=== PATIENT | male | born 1960 | race Caucasian/White ===

== ENCOUNTER 2017-01-16 09:19 | Emergency (ER) | payer MEDICAID ==
[2017-01-16 09:45] VITALS: BP 138/93
[2017-01-16] MEDS ORDERED: Diphtheria,Pertussis(Acell),Tetanus Vaccine 0.5 ML SDV IM ONE (09:58)
[2017-01-16] MEDS ORDERED: Bacitracin Oint 1 GM U/D Packet TOP ONE (09:58)
--- NOTE | 2017-01-16 10:03 | EDM.PDOC ---
ED HPI Skin/Rash - General Chief Complaint: Laceration Stated Complaint: CUT THE FINGER ON RIGHT HAND Time Seen by Provider: 01/16/17 09:50 Source: Reports: Patient History Limitations: Reports: No limitations - History of Present Illness INITIAL COMMENTS - FREE TEXT/NARRATIVE: Just prior to arrival this gentleman was sharpening a knife and the knife slipped and he got a little laceration to the tip of the right index finger. His tetanus is not up to date. He washed the finger for several minutes under running water. - Related Data Allergies Allergy/AdvReac Type Severity Reaction Status Date / Time No Known Allergies Allergy Verified 01/16/17 09:35 Home Meds: Ambulatory Orders Medication Instructions Recorded Confirmed Cyclobenzaprine [Flexeril] 1 tab PO ASDIRECTED 10/16/16 10/16/16 Naproxen 2 tab PO ASDIRECTED 10/16/16 10/16/16 Lisdexamfetamine [Vyvanse] 01/16/17 01/16/17 Past Medical History Respiratory History: Reports: Bronchitis, recurrent Musculoskeletal History: Reports: Fracture Neurological History: Reports: Head trauma, MS, Other (see below) Other Neuro History: vega's palsy Psychiatric History: Reports: ADHD, Addiction, Anxiety, Bipolar, Depression, PTSD - Past Surgical History GI Surgical History: Reports: Appendectomy Neurological Surgical History: Reports: Other (see below) Other Neurological Surgeries/Procedures: tumor removed from spine Musculoskeletal Surgical History: Reports: Other (see below) Other Musculoskeletal Surgeries/Procedures:: leg surgery d/t fracture, jaw surgery Social & Family History - Tobacco Use Smoking Status *Q: Current Every Day Smoker Years of Tobacco use: 45 Packs/Tins Daily: 0.5 - Recreational Drug Use Recreational Drug Use: Yes Recreational Drug Type: Reports: Marijuana/Hashish Recreational Drug Use Frequency: Daily ED ROS GENERAL - Review of Systems Review Of Systems: ROS reveals no pertinent complaints other than HPI. ED EXAM, SKIN/RASH Exam: See Below Exam Limited By: No limitations General Appearance: alert, WD/WN, no apparent distress Extremities: other (There is a small flap-like laceration to the tip of the right index finger. Total length of the laceration is approximately 8 mm and it is shallow. Neurovascular appears to be intact. The wound is clean.) Course - Vital Signs Last Recorded V/S: Last Vital Signs Temp 36.7 C 01/16/17 09:43 Pulse 79 01/16/17 09:43 Resp 14 01/16/17 09:43 BP 138/93 H 01/16/17 09:43 Pulse Ox 94 L 01/16/17 09:43 - Orders/Labs/Meds Orders: Active Orders 24 hr Category Date Time Status Vaccines to be Administered [RC] PER UNIT ROUTINE Care 01/16/17 09:58 Ordered Meds: Medications Discontinued Medications Generic Name Dose Route Start Last Admin Trade Name Mehdi PRN Reason Stop Dose Admin Bacitracin 1 dose 01/16/17 09:58 Bacitracin Oint 1 Gm TOP 01/16/17 09:59 ONETIME ONE Diphtheria/Tetanus/Acell Pertussis 0.5 ml 01/16/17 09:58 Adacel IM 01/16/17 09:59 .ONCE ONE - Re-Assessments/Exams Free Text/Narrative Re-Assessment/Exam: 01/16/17 10:01 The wound was cleaned further by the nurse then antibiotic ointment was applied followed by a dressing. The patient received Adacel IM Departure - Departure Time of Disposition: 10:02 Disposition: Home, Self-Care 01 Condition: fair Clinical Impression: Finger laceration Forms: ED Department Discharge Additional Instructions: Wash the area with soap and water every day. Didn't apply a small dab of antibiotic ointment and keep covered with a Band-Aid. Keep this clean. Wear a glove if you're working somewhere where it might get dirty. This should heal quickly. - My Orders Last 24 Hours: My Active Orders 01/16/17 09:58 Vaccines to be Administered [RC] PER UNIT ROUTINE - Assessment/Plan Last 24 Hours: My Active Orders 01/16/17 09:58 Vaccines to be Administered [RC] PER UNIT ROUTINE
== END 2017-01-16 10:21 | disposition home or self-care (01) ==
LOC: JP.ED 09:19
DX: S61.210A Laceration without foreign body of right index finger without damage to nail, initial encounter (principal); F41.9 Anxiety disorder, unspecified; F32.9 Major depressive disorder, single episode, unspecified; F17.210 Nicotine dependence, cigarettes, uncomplicated; Z90.49 Acquired absence of other specified parts of digestive tract; Z23 Encounter for immunization; W26.0XXA Contact with knife, initial encounter
CPT/HCPCS: 90471; 90715; 99283-25

== ENCOUNTER 2017-05-16 13:50 | Emergency (ER) | payer MEDICAID ==
[2017-05-16] MEDS ORDERED: Ketorolac 60 MG/2 ML SDV IM ONE (15:27)
--- NOTE | 2017-05-16 15:30 | EDM.PDOC ---
ED HPI GENERAL MEDICAL PROBLEM - General Chief Complaint: General Stated Complaint: RIB PAIN FROM CHANGING A TRUCK TIRE Time Seen by Provider: 05/16/17 15:18 Source of Information: Reports: Patient, RN Notes Reviewed History Limitations: Reports: No Limitations - History of Present Illness INITIAL COMMENTS - FREE TEXT/NARRATIVE: 56-year-old gentleman presents emergency department today for complaint of chest pain, he was injured 3 days prior when a tiffany he was using to change a tire on a semi-tractor trailer truck became loose hit him across the anterior chest, he complains of difficulty breathing hard to take a deep breath chest pain, no nausea vomiting no other GI symptoms left rib around front and back, up right shoulder Pain Score (Numeric/FACES): 6 - Related Data Allergies Allergy/AdvReac Type Severity Reaction Status Date / Time No Known Allergies Allergy Verified 05/16/17 14:55 Home Meds: Home Meds Lisdexamfetamine [Vyvanse] 60 mg PO DAILY 01/16/17 [History] Past Medical History Respiratory History: Reports: Bronchitis, Recurrent Musculoskeletal History: Reports: Fracture Neurological History: Reports: Head Trauma, MS Other Neuro History: vega's palsy Psychiatric History: Reports: ADHD, Addiction, Anxiety, Bipolar, Depression, PTSD - Past Surgical History GI Surgical History: Reports: Appendectomy Neurological Surgical History: Reports: Other (See Below) Other Neurological Surgeries/Procedures: back surgery Musculoskeletal Surgical History: Reports: Other (See Below) Other Musculoskeletal Surgeries/Procedures:: various broken bones Social & Family History - Tobacco Use Smoking Status *Q: Current Every Day Smoker Years of Tobacco use: 30 Packs/Tins Daily: 1 - Recreational Drug Use Recreational Drug Use: No Recreational Drug Type: Reports: Marijuana/Hashish Recreational Drug Use Frequency: Daily ED ROS GENERAL - Review of Systems Review Of Systems: See Below Constitutional: Reports: No Symptoms HEENT: Reports: No Symptoms Respiratory: Reports: Shortness of Breath Cardiovascular: Reports: Chest Pain GI/Abdominal: Reports: No Symptoms : Reports: No Symptoms ED EXAM, GENERAL - Physical Exam Exam: See Below Exam Limited By: No Limitations General Appearance: Alert, WD/WN, No Apparent Distress Respiratory/Chest: No Respiratory Distress, Lungs Clear, Normal Breath Sounds, No Accessory Muscle Use, Other (Tenderness to palpation across the anterior chest) Cardiovascular: Regular Rate, Rhythm, No Murmur GI/Abdominal: Soft, Non-Tender Course - Vital Signs Last Recorded V/S: Last Vital Signs Temp 97 F 05/16/17 14:58 Pulse 60 05/16/17 17:27 Resp 16 05/16/17 17:27 BP 133/80 05/16/17 17:27 Pulse Ox 98 05/16/17 17:27 - Orders/Labs/Meds Orders: Active Orders 24 hr Category Date Time Status Peripheral IV Care [RC] . DIRECTED Care 05/16/17 16:28 Active Chest 2V [CR] Urgent Exams 05/16/17 15:27 Taken Chest w Cont [CT] Stat Exams 05/16/17 16:27 Taken Sodium Chloride 0.9% [Normal Saline] 1,000 ml Med 05/16/17 16:30 Active IV ASDIRECTED Sodium Chloride 0.9% [Saline Flush] Med 05/16/17 16:27 Active 10 ml FLUSH ASDIRECTED PRN Sodium Chloride 0.9% [Saline Flush] Med 05/16/17 17:00 Active 10 ml FLUSH ONETIME PRN Peripheral IV Insertion Adult [OM.PC] Urgent Oth 05/16/17 16:27 Ordered Medication Orders Sodium Chloride (Normal Saline) 1,000 mls @ 500 mls/hr IV ASDIRECTED WU Last Admin: 05/16/17 16:45 Dose: 500 mls/hr Sodium Chloride (Saline Flush) 10 ml FLUSH ASDIRECTED PRN PRN Reason: Keep Vein Open Last Admin: 05/16/17 16:45 Dose: 10 ml Sodium Chloride (Saline Flush) 10 ml FLUSH ONETIME PRN PRN Reason: PER RADIOLOGY PROTOCOL Last Admin: 05/16/17 17:07 Dose: 10 ml Meds: Medications Generic Name Dose Route Start Last Admin Trade Name Freq PRN Reason Stop Dose Admin Sodium Chloride 1,000 mls @ 500 mls/hr 05/16/17 16:30 05/16/17 16:45 Normal Saline IV 500 mls/hr ASDIRECTED WU Administration Sodium Chloride 10 ml 05/16/17 16:27 05/16/17 16:45 Saline Flush FLUSH 10 ml ASDIRECTED PRN Administration Keep Vein Open Sodium Chloride 10 ml 05/16/17 17:00 05/16/17 17:07 Saline Flush FLUSH 10 ml ONETIME PRN Administration PER RADIOLOGY PROTOCOL Discontinued Medications Generic Name Dose Route Start Last Admin Trade Name Mehdi PRN Reason Stop Dose Admin Sodium Chloride 75 mls @ 3 mls/sec 05/16/17 17:00 05/16/17 17:07 Normal Saline IV 05/16/17 17:01 3 mls/sec ONETIME ONE Administration Iopamidol 100 ml 05/16/17 17:00 05/16/17 17:07 Isovue-300 (61%) IV 05/16/17 17:01 100 ml . DIRECTED PRN Administration RADIOLOGY EXAM Ketorolac Tromethamine 60 mg 05/16/17 15:27 05/16/17 15:40 Toradol IM 05/16/17 15:28 60 mg ONETIME ONE Administration Departure - Departure Time of Disposition: 18:11 Disposition: Home, Self-Care 01 Condition: Poor Clinical Impression: Mediastinal mass - Discharge Information Forms: ED Department Discharge Additional Instructions: Please report to outpatient surgery for a bronchoscopy on Friday morning they will call you with the time - My Orders Last 24 Hours: My Active Orders 05/16/17 15:27 Chest 2V [CR] Urgent 05/16/17 16:27 Chest w Cont [CT] Stat Sodium Chloride 0.9% [Saline Flush] 10 ml FLUSH ASDIRECTED PRN Peripheral IV Insertion Adult [OM.PC] Urgent 05/16/17 16:28 Peripheral IV Care [RC] . DIRECTED 05/16/17 16:30 Sodium Chloride 0.9% [Normal Saline] 1,000 ml IV ASDIRECTED 05/16/17 17:00 Sodium Chloride 0.9% [Saline Flush] 10 ml FLUSH ONETIME PRN - Assessment/Plan Last 24 Hours: My Active Orders 05/16/17 15:27 Chest 2V [CR] Urgent 05/16/17 16:27 Chest w Cont [CT] Stat Sodium Chloride 0.9% [Saline Flush] 10 ml FLUSH ASDIRECTED PRN Peripheral IV Insertion Adult [OM.PC] Urgent 05/16/17 16:28 Peripheral IV Care [RC] . DIRECTED 05/16/17 16:30 Sodium Chloride 0.9% [Normal Saline] 1,000 ml IV ASDIRECTED 05/16/17 17:00 Sodium Chloride 0.9% [Saline Flush] 10 ml FLUSH ONETIME PRN Plan: Assessment Acuity = acute Site and laterality = mediastinal lung mass complicated patient with history of tobacco use and dependence Etiology = suspicious for primary lung cancer Manifestations = rib pain Location of injury = Home Lab values = CT scan describes a lobulated mass along the medial left apex that invades the adjacent mediastinum measures 5.2 x 4.6 cm Plan I did review CT scan results with him ice discussed the case with Dr. Louis from general surgery he agreed to see him on Friday plan for bronchoscopy with biopsies because he has no primary care physician he's also going to be set up with oncology for further evaluation Patient was in agreement with the plan all questions were answered, they were instructed to return to the emergency department or call for worsening symptoms. This note was dictated using [employer] voice recognition software please call with any questions.
[2017-05-16] MEDS ORDERED: Sodium Chloride 0.9% 10 ML Syringe FLUSH PRN ×2 (16:27→17:00)
[2017-05-16] MEDS ORDERED: Sodium Chloride 0.9% 1,000 ML IV SCH (16:30)
[2017-05-16] MEDS ORDERED: Sodium Chloride 0.9% 75 ML IV ONE (17:00)
[2017-05-16] MEDS ORDERED: Iopamidol 612 MG/ML 100 ML Bottle IV PRN (17:00)
[2017-05-16 17:27] VITALS: BP 133/80
--- NOTE | 2017-05-19 08:13 | CR ---
Chest 2V INDICATION: ant chest pain trauma COMPARISON: 10/16/2016 FINDINGS: Two views. Heart size normal. Infiltrate or mass in the left upper lobe medially is new . Lungs otherwise clear. No pleural effusion. Pleural-based density posteriorly on the lateral view. IMPRESSION: Left upper lobe infiltrate or mass. Pleural-based density posteriorly on the lateral vie w. CT chest to follow.
== END 2017-05-16 18:36 | disposition home or self-care (01) ==
LOC: JP.ED 13:50
DX: J98.59 Other diseases of mediastinum, not elsewhere classified (principal); F31.9 Bipolar disorder, unspecified; F17.210 Nicotine dependence, cigarettes, uncomplicated; Z79.899 Other long term (current) drug therapy; Z90.49 Acquired absence of other specified parts of digestive tract; Z98.890 Other specified postprocedural states; W22.8XXA Striking against or struck by other objects, initial encounter
CPT/HCPCS: 71020; 71260; 96361; 96374; 99284; 99285; J1885; J7030; J7040; J7050; Q9967

== ENCOUNTER → 2017-05-19 | Day surgery (SDC) | payer MEDICAID ==
[~2017-05-19] MED LIST: Dextrose 5%-Lactated Ringers 1,000 ML IV SCH; LORazepam 2 MG/ML MDV IVPUSH ONE; Lidocaine 2% Viscous Solution 15 ML Cup ONE; Lidocaine 4% Top Soln 4 ML LTA Syringe ONE; Lidocaine 4% Top Soln 50 ML Bottle ONE; Midazolam 1 MG/ML 2 ML SDV ONE; Propofol 200 MG/20 ML SDV ONE; fentaNYL 100 MCG/2 ML SDV ONE
[2017-05-19 14:22] VITALS: BP 136/80
--- NOTE | 2017-05-26 13:36 | OR ---
DATE OF PROCEDURE: 05/19/2017 PREOPERATIVE DIAGNOSIS: Left upper lobe mass. POSTOPERATIVE DIAGNOSIS: Left upper lobe mass. OPERATIVE PROCEDURE: Flexible bronchoscopy with tracheobronchial washings and: 1. Brushings to left upper lobe (30327). 2. Bronchoalveolar lavage to left upper lobe (22665). ANESTHESIA: Topical plus IV sedation. INDICATION FOR PROCEDURE: A 56-year-old who suffered some contusion to the chest wall and presented to the emergency room, was noted incidentally then to have a mass involving the left upper lobe. This abuts the mediastinum and would appear to primarily involve the anterior segment of the left upper lobe and it is clearly, highly suggestive of a malignancy. The plan is to proceed with flexible bronchoscopy for diagnostic purposes. Potential risks including bleeding, infection, aspiration of gastric contents, and the possibility of the procedure may be nondiagnostic were all reviewed, and the patient wishes to proceed. DETAILS OF PROCEDURE: The patient was taken to the operating room and placed in a supine position. IV sedation was administered, after which the translaryngeal injection of lidocaine was placed per Anesthesia. The flexible bronchoscope was then passed into the hypopharynx and larynx. Of note, the cord structures were symmetrical and there did not appear to be any parallel paralysis related to tumor involvement at the left recurrent laryngeal nerve as this tumor does come close to that area within the mediastinum. The proximal trachea was unremarkable. There was some rightward displacement of the distal trachea and miladys, consistent with a mass being up against the mediastinum here as well. The right tracheobronchial tree was entirely normal. On the left side, there was some narrowing and slight edema of the left upper lobe bronchus. Otherwise, the lingular and lower lobe bronchial tree were unremarkable. At this point, tracheobronchial washings have been diffusely obtained and from this point then the brushings were obtained from the left upper lobe through both the anterior and apical posterior segmental bronchi. After these were completed, an endobronchial alveolar lavage was accomplished to the left upper lobe. The bronchoscope essentially cleared both orifices of the left upper lobe segmental bronchi and 200 mL of saline was injected and the fluid was evacuated and sent for cytologic and microbiologic workup. The procedure was then concluded. There were no other complications. The patient will be set up for a PET scan as soon as that can be scheduled probably in [place] and then a Medical Oncology appointment for next week after hopefully the present gives us a diagnosis and the PET scan providing some further staging information of this. Terry Louis MD /[id number]
== END ==
LOC: JP.SDS 08:33
PROVIDERS: ATTEND Surgery
DX: C34.12 Malignant neoplasm of upper lobe, left bronchus or lung (principal)
CPT/HCPCS: 31623; 31624; 81235; 87015; 87070; 87077; 87102; 87116; 87205; 87206; 87220; 88112; 88271; 88305; 88313; 88341; 88342; 88381; A9270; J2060; J2250; J2704; J3010; J7042

== ENCOUNTER 2017-06-13 12:12 | Emergency (ER) | payer MEDICAID ==
[2017-06-13] MEDS ORDERED: Sodium Chloride 0.9% 10 ML Syringe FLUSH PRN (12:53)
[2017-06-13] MEDS ORDERED: Ondansetron 4 MG/2 ML SDV IVPUSH PRN (12:53)
--- NOTE | 2017-06-13 12:58 | EDM.PDOC ---
ED HPI GENERAL MEDICAL PROBLEM - General Chief Complaint: General Stated Complaint: CANCER PATIENT Time Seen by Provider: 06/13/17 12:36 Source of Information: Reports: Patient, RN Notes Reviewed History Limitations: Reports: No Limitations - History of Present Illness INITIAL COMMENTS - FREE TEXT/NARRATIVE: 56-year-old gentleman presents emergency department day complaint nausea and vomiting generalized poor feeling. He was recently diagnosed with non-small cell lung cancer he is currently undergoing radiation treatment last treatment was approximately one week ago he states initially felt okay after treatment but then has progressively gotten worse. He's been unable to keep food products down minimal oral intake denies any fevers shortness of breath or chest pain denies Pain Score (Numeric/FACES): 0 - Related Data Allergies Allergy/AdvReac Type Severity Reaction Status Date / Time No Known Allergies Allergy Verified 06/13/17 12:27 Home Meds: Home Meds Lisdexamfetamine [Vyvanse] 60 mg PO DAILY 01/16/17 [History] Citalopram [Citalopram Hbr] 40 mg PO DAILY 06/13/17 [History] HYDROmorphone [Dilaudid] 2 mg PO Q4H 06/13/17 [History] Prochlorperazine [Compazine] 10 mg PO TID 06/13/17 [History] Past Medical History HEENT History: Reports: Allergic Rhinitis Respiratory History: Reports: Bronchitis, Recurrent, Other (See Below) Other Respiratory History: lung masses Musculoskeletal History: Reports: Fracture Neurological History: Reports: Head Trauma, MS Other Neuro History: vega's palsy Psychiatric History: Reports: ADHD, Addiction, Anxiety, Bipolar, Depression, PTSD Oncologic (Cancer) History: Reports: Lung (Non-small cell) - Past Surgical History HEENT Surgical History: Reports: None Respiratory Surgical History: Reports: None GI Surgical History: Reports: Appendectomy Neurological Surgical History: Reports: Other (See Below) Other Neurological Surgeries/Procedures: back surgery Musculoskeletal Surgical History: Reports: Other (See Below) Other Musculoskeletal Surgeries/Procedures:: various broken bones Social & Family History - Family History Family Medical History: Noncontributory - Tobacco Use Smoking Status *Q: Current Every Day Smoker Years of Tobacco use: 30 Packs/Tins Daily: 0.5 Used Tobacco, but Quit: No Second Hand Smoke Exposure: No - Caffeine Use Caffeine Use: Reports: Coffee - Recreational Drug Use Recreational Drug Use: Yes Drug Use in Last 12 Months: Yes Recreational Drug Type: Reports: Marijuana/Hashish Recreational Drug Use Frequency: Daily ED ROS GENERAL - Review of Systems Review Of Systems: See Below Constitutional: Reports: Chills, Fatigue. Denies: Fever HEENT: Reports: No Symptoms Respiratory: Reports: No Symptoms Cardiovascular: Reports: No Symptoms GI/Abdominal: Reports: Abdominal Pain, Flatus, Nausea, Vomiting. Denies: Constipation, Diarrhea : Reports: No Symptoms Musculoskeletal: Reports: No Symptoms Skin: Reports: No Symptoms Neurological: Reports: No Symptoms ED EXAM, GENERAL - Physical Exam Exam: See Below Free Text/Narrative:: General: Male, ill-appearing, alert and oriented x3 HEENT: head is atraumatic normocephalic, eyes pupils equal round reactive to light, sclera clear no conjunctivitis appreciated. Ears tympanic membranes clear and parry landmarks and light reflex are present bilaterally canals are clear. Nose no septal deviation, nares are clear, no blood present. Mouth mucosa is dry and pink no erythema or exudate noted in soft palate, tongue is midline uvula is midline, dentition is none. Neck: Supple no thyromegaly no tracheal deviation. Nodes: Cervical nodes subclavicular nodes nontender no palpable lymphadenopathy noted. Lungs: clear to auscultation bilaterally with symmetrical respirations, no adventitious noise appreciated. CV: Regular rate and rhythm S1 and S2 appreciated no murmurs rubs or gallops noted. Abdomen: Soft, nontender, no palpable masses or organomegaly appreciated, no distention no guarding bowel sounds are present, . Neuro: Cranial nerves II through XII grossly intact Skin: Warm and dry, intact Extremities: No lower extremity edema appreciated, Course - Vital Signs Last Recorded V/S: Last Vital Signs Temp 97.5 F 06/13/17 12:31 Pulse 69 06/13/17 13:51 Resp 12 06/13/17 13:51 BP 140/82 06/13/17 13:51 Pulse Ox 100 06/13/17 13:51 - Orders/Labs/Meds Orders: Active Orders 24 hr Category Date Time Status Peripheral IV Care [RC] . DIRECTED Care 06/13/17 12:53 Active Lactated Ringers [Ringers, Lactated] 1,000 ml Med 06/13/17 13:00 Active IV ASDIRECTED Ondansetron [Zofran] Med 06/13/17 12:53 Active 4 mg IVPUSH ONETIME PRN Sodium Chloride 0.9% [Saline Flush] Med 06/13/17 12:53 Active 10 ml FLUSH ASDIRECTED PRN ED Antiemetic Medication Reflex [OM.PC] Click to Edit Oth 06/13/17 12:53 Ordered Peripheral IV Insertion Adult [OM.PC] Urgent Oth 06/13/17 12:53 Ordered Medication Orders Lactated Ringer's (Ringers, Lactated) 1,000 mls @ 999 mls/hr IV ASDIRECTED WU Last Admin: 06/13/17 13:00 Dose: 999 mls/hr Ondansetron HCl (Zofran) 4 mg IVPUSH ONETIME PRN PRN Reason: Nausea/Vomiting Last Admin: 06/13/17 13:01 Dose: 4 mg Sodium Chloride (Saline Flush) 10 ml FLUSH ASDIRECTED PRN PRN Reason: Keep Vein Open Last Admin: 06/13/17 13:00 Dose: 10 ml Labs: Laboratory Tests 06/13/17 06/13/17 06/13/17 Range/Units 12:59 13:05 13:05 WBC 5.8 (4.5-11.0) K/uL RBC 4.81 (4.30-5.90) M/uL Hgb 14.9 D (12.0-15.0) g/dL Hct 44.3 (40.0-54.0) % MCV 92 (80-98) fL MCH 31 (27-31) pg MCHC 34 (32-36) % Plt Count 181 (150-400) K/uL Neut % (Auto) 88 H (36-66) % Lymph % (Auto) 4 L (24-44) % [place] % (Auto) 8 H (2-6) % Eos % (Auto) 0 L (2-4) % Baso % (Auto) 0 (0-1) % Sodium 138 L (140-148) mmol/L Potassium 4.6 (3.6-5.2) mmol/L Chloride 102 (100-108) mmol/L Carbon Dioxide 32 (21-32) mmol/L Anion Gap 8.6 (5.0-14.0) mmol/L BUN 20 H (7-18) mg/dL Creatinine 1.0 (0.8-1.3) mg/dL Est Cr Clr Drug Dosing TNP Estimated GFR (MDRD) > 60 (>60) Glucose 117 H (74-106) mg/dL Lactic Acid (0.4-2.0) mmol/L Calcium 8.8 (8.5-10.1) mg/dL Total Bilirubin 0.4 (0.2-1.0) mg/dL AST 24 (15-37) U/L ALT 30 (12-78) U/L Alkaline Phosphatase 125 H (46-116) U/L Total Protein 7.9 (6.4-8.2) g/dL Albumin 3.4 (3.4-5.0) g/dL Globulin 4.5 H (2.3-3.5) g/dL Albumin/Globulin Ratio 0.8 L (1.2-2.2) Lipase 133 (73-393) U/L Urine Color Yellow Urine Appearance Slightly cloudy Urine pH 8.0 (4.5-8.0) Ur Specific [place] 1.015 (1.008-1.030) Urine Protein Negative (NEGATIVE) mg/dL Urine Glucose (UA) Normal (NEGATIVE) mg/dL Urine Ketones 15 H (NEGATIVE) mg/dL Urine Occult Blood Negative (NEGATIVE) Urine Nitrite Negative (NEGAITVE) Urine Bilirubin Negative (NEGATIVE) Urine Urobilinogen Normal (NORMAL) mg/dL Ur Leukocyte Esterase Negative (NEGATIVE) Urine RBC 0-5 (0-5) Urine WBC 5-10 H (0-5) Ur Epithelial Cells Few Amorphous Sediment Many Urine Bacteria Few Urine Mucus Few 06/13/17 Range/Units 13:05 WBC (4.5-11.0) K/uL RBC (4.30-5.90) M/uL Hgb (12.0-15.0) g/dL Hct (40.0-54.0) % MCV (80-98) fL MCH (27-31) pg MCHC (32-36) % Plt Count (150-400) K/uL Neut % (Auto) (36-66) % Lymph % (Auto) (24-44) % [place] % (Auto) (2-6) % Eos % (Auto) (2-4) % Baso % (Auto) (0-1) % Sodium (140-148) mmol/L Potassium (3.6-5.2) mmol/L Chloride (100-108) mmol/L Carbon Dioxide (21-32) mmol/L Anion Gap (5.0-14.0) mmol/L BUN (7-18) mg/dL Creatinine (0.8-1.3) mg/dL Est Cr Clr Drug Dosing Estimated GFR (MDRD) (>60) Glucose (74-106) mg/dL Lactic Acid 1.1 (0.4-2.0) mmol/L Calcium (8.5-10.1) mg/dL Total Bilirubin (0.2-1.0) mg/dL AST (15-37) U/L ALT (12-78) U/L Alkaline Phosphatase (46-116) U/L Total Protein (6.4-8.2) g/dL Albumin (3.4-5.0) g/dL Globulin (2.3-3.5) g/dL Albumin/Globulin Ratio (1.2-2.2) Lipase (73-393) U/L Urine Color Urine Appearance Urine pH (4.5-8.0) Ur Specific [place] (1.008-1.030) Urine Protein (NEGATIVE) mg/dL Urine Glucose (UA) (NEGATIVE) mg/dL Urine Ketones (NEGATIVE) mg/dL Urine Occult Blood (NEGATIVE) Urine Nitrite (NEGAITVE) Urine Bilirubin (NEGATIVE) Urine Urobilinogen (NORMAL) mg/dL Ur Leukocyte Esterase (NEGATIVE) Urine RBC (0-5) Urine WBC (0-5) Ur Epithelial Cells Amorphous Sediment Urine Bacteria Urine Mucus Meds: Medications Generic Name Dose Route Start Last Admin Trade Name Freq PRN Reason Stop Dose Admin Lactated Ringer's 1,000 mls @ 999 mls/hr 06/13/17 13:00 06/13/17 13:00 Ringers, Lactated IV 999 mls/hr ASDIRECTED WU Administration Ondansetron HCl 4 mg 06/13/17 12:53 06/13/17 13:01 Zofran IVPUSH 4 mg ONETIME PRN Administration Nausea/Vomiting Sodium Chloride 10 ml 06/13/17 12:53 06/13/17 13:00 Saline Flush FLUSH 10 ml ASDIRECTED PRN Administration Keep Vein Open Departure - Departure Time of Disposition: 14:06 Disposition: Home, Self-Care 01 Condition: Good Clinical Impression: Nausea and vomiting in adult patient - Discharge Information Referrals: Jessica Serra PA [Primary Care Provider] - Forms: ED Department Discharge Additional Instructions: Continue to use her Zofran as needed to keep your follow-up appointment with oncology - My Orders Last 24 Hours: My Active Orders 06/13/17 12:53 Peripheral IV Care [RC] . DIRECTED Ondansetron [Zofran] 4 mg IVPUSH ONETIME PRN Sodium Chloride 0.9% [Saline Flush] 10 ml FLUSH ASDIRECTED PRN ED Antiemetic Medication Reflex [OM.PC] Click to Edit Peripheral IV Insertion Adult [OM.PC] Urgent 06/13/17 13:00 Lactated Ringers [Ringers, Lactated] 1,000 ml IV ASDIRECTED - Assessment/Plan Last 24 Hours: My Active Orders 06/13/17 12:53 Peripheral IV Care [RC] . DIRECTED Ondansetron [Zofran] 4 mg IVPUSH ONETIME PRN Sodium Chloride 0.9% [Saline Flush] 10 ml FLUSH ASDIRECTED PRN ED Antiemetic Medication Reflex [OM.PC] Click to Edit Peripheral IV Insertion Adult [OM.PC] Urgent 06/13/17 13:00 Lactated Ringers [Ringers, Lactated] 1,000 ml IV ASDIRECTED Plan: Assessment Acuity = acute Site and laterality = nausea and vomiting, came the patient with known history of non-small cell lung carcinoma Etiology = status post radiation treatment one week Manifestations = none Location of injury = Home Lab values = CBC, CMP unremarkable urinalysis reveals 5-10 wbc's consists with pyuria cultures pending Plan He received 4 mg of Zofran and 1 L of fluids felt significantly better was able to tolerate fluids he does have Zofran at home plan is to return home and continue with radiation to treatment he will repeat return to the emergency department worsening of symptoms Patient was in agreement with the plan all questions were answered, they were instructed to return to the emergency department or call for worsening symptoms. This note was dictated using [employer] voice recognition software please call with any questions.
[2017-06-13] MEDS ORDERED: Lactated Ringers 1,000 ML IV SCH (13:00)
[2017-06-13 13:51] VITALS: BP 140/82
== END 2017-06-13 14:28 | disposition home or self-care (01) ==
LOC: JP.ED 12:12
DX: R11.2 Nausea with vomiting, unspecified (principal); C34.90 Malignant neoplasm of unspecified part of unspecified bronchus or lung; F17.210 Nicotine dependence, cigarettes, uncomplicated; F90.9 Attention-deficit hyperactivity disorder, unspecified type; Z79.899 Other long term (current) drug therapy; Z90.49 Acquired absence of other specified parts of digestive tract
CPT/HCPCS: 36415; 80053; 81001; 83605; 83690; 85025; 87086; 96361; 96374; 99284; J2405; J7050; J7120

== ENCOUNTER 2017-12-05 12:56 | Emergency (ER) | payer MEDICAID ==
--- NOTE | 2017-12-05 18:01 | EDM.PDOC ---
ED HPI GENERAL MEDICAL PROBLEM - General Chief Complaint: Back Pain or Injury Stated Complaint: LEFT FLANK PAIN,SHORT OF BREATH Time Seen by Provider: 12/05/17 15:43 Source of Information: Reports: Patient History Limitations: Reports: No Limitations - History of Present Illness INITIAL COMMENTS - FREE TEXT/NARRATIVE: This patient has a history of metastatic lung cancer. He's been on radiation therapy and is now on chemotherapy. He was at his infusion today of chemotherapy began having some sort of left flank pain denies any history of kidney stone he says sometimes there is numbness to the left side of his lower back. The area of most pain seems to be the lower ribs posteriorly. He describes the pain is pretty severe. A lot of 4 mg every 4 hours and says it just isn't cutting it anymore - Related Data Allergies Allergy/AdvReac Type Severity Reaction Status Date / Time No Known Allergies Allergy Verified 06/13/17 12:27 Home Meds: Home Meds Lisdexamfetamine [Vyvanse] 60 mg PO DAILY 01/16/17 [History] Citalopram [Citalopram Hbr] 40 mg PO DAILY 06/13/17 [History] HYDROmorphone [Dilaudid] 2 mg PO Q4H 06/13/17 [History] Prochlorperazine [Compazine] 10 mg PO TID 06/13/17 [History] Past Medical History HEENT History: Reports: Allergic Rhinitis Respiratory History: Reports: Bronchitis, Recurrent, Other (See Below) Other Respiratory History: lung masses Gastrointestinal History: Reports: None Musculoskeletal History: Reports: Fracture Neurological History: Reports: Head Trauma, MS Other Neuro History: vega's palsy Psychiatric History: Reports: ADHD, Addiction, Anxiety, Bipolar, Depression, PTSD Immunologic History: Reports: Immunosuppression Oncologic (Cancer) History: Reports: Lung - Infectious Disease History Infectious Disease History: Reports: Chicken Pox - Past Surgical History HEENT Surgical History: Reports: None Respiratory Surgical History: Reports: None GI Surgical History: Reports: Appendectomy Neurological Surgical History: Reports: Other (See Below) Other Neurological Surgeries/Procedures: back surgery Musculoskeletal Surgical History: Reports: Other (See Below) Other Musculoskeletal Surgeries/Procedures:: various broken bones Social & Family History - Family History Family Medical History: Noncontributory - Tobacco Use Smoking Status *Q: Current Every Day Smoker Years of Tobacco use: 20 Packs/Tins Daily: 0.5 Used Tobacco, but Quit: No Second Hand Smoke Exposure: Yes - Caffeine Use Caffeine Use: Reports: Coffee - Recreational Drug Use Recreational Drug Use: Yes Drug Use in Last 12 Months: Yes Recreational Drug Type: Reports: Marijuana/Hashish Recreational Drug Use Frequency: Daily ED ROS GENERAL - Review of Systems Review Of Systems: ROS reveals no pertinent complaints other than HPI. ED EXAM, UPPER BACK/NECK PAIN - Physical Exam Exam: See Below Exam Limited By: No Limitations General Appearance: Alert, Thin Throat/Mouth Exam: Normal Inspection Cardiovascular/Respiratory: Other (Heart shows regular rhythm lungs show some coarse breath sounds especially in the left base.) Back Exam: Other (There are severe tenderness over the left posterior ribs in the lateral scapular line. Her posterior axillary line. This looks like approximately the eighth through 10th ribs.) Neurologic: No Motor/Sensory Deficits Course - Vital Signs Last Recorded V/S: Last Vital Signs Temp 37.1 C 12/05/17 14:56 Pulse 75 12/05/17 17:59 Resp 18 12/05/17 17:59 BP 130/83 12/05/17 17:59 Pulse Ox 98 12/05/17 17:59 - Orders/Labs/Meds Orders: Active Orders 24 hr Category Date Time Status Ribs 2V w Chest Lt [CR] Stat Exams 12/05/17 15:08 Taken Labs: Laboratory Tests 12/05/17 Range/Units 15:09 Urine Color Yellow Urine Appearance Clear Urine pH 5.0 (4.5-8.0) Ur Specific [place] 1.015 (1.008-1.030) Urine Protein Negative (NEGATIVE) mg/dL Urine Glucose (UA) Normal (NEGATIVE) mg/dL Urine Ketones Negative (NEGATIVE) mg/dL Urine Occult Blood Negative (NEGATIVE) Urine Nitrite Negative (NEGAITVE) Urine Bilirubin Small (NEGATIVE) Urine Urobilinogen Normal (NORMAL) mg/dL Ur Leukocyte Esterase Negative (NEGATIVE) Urine RBC 0-5 (0-5) Urine WBC 0-5 (0-5) Ur Epithelial Cells Few Amorphous Sediment Not seen Urine Bacteria Few Urine Mucus Few - Radiology Interpretation Free Text/Narrative:: Chest x-ray shows a shaggy appearance to one of the posterior ribs on the left abdomen. It may be the 10th rib. It looks like it might be metastatic disease. Departure - Departure Time of Disposition: 17:59 Disposition: Home, Self-Care 01 Condition: Fair Clinical Impression: Rib pain on left side, Is - Discharge Information Instructions: Rib Fracture, [id number] Referrals: PCP,None [Primary Care Provider] - Forms: ED Department Discharge Additional Instructions: The x-ray shows that there is probably some cancer spread to one of your ribs. You will need to discuss this with your Dr. If Dilaudid 4 mg every 4 hours is not helping then you can increase the dose by one half tablet. Just watch out for sedation. Be sure to discuss this with your Dr. soon - My Orders Last 24 Hours: My Active Orders 12/05/17 15:08 Ribs 2V w Chest Lt [CR] Stat - Assessment/Plan Last 24 Hours: My Active Orders 12/05/17 15:08 Ribs 2V w Chest Lt [CR] Stat
[2017-12-05 18:05] VITALS: BP 130/83
== END 2017-12-05 18:13 | disposition home or self-care (01) ==
LOC: JP.ED 12:56
DX: R07.81 Pleurodynia (principal); F17.210 Nicotine dependence, cigarettes, uncomplicated; Z79.899 Other long term (current) drug therapy
CPT/HCPCS: 71101-LT; 81001; 99284

== ENCOUNTER 2018-03-11 10:48 | Emergency (ER) | payer MEDICAID ==
[2018-03-11 11:42] VITALS: BP 129/78
[2018-03-11] MEDS ORDERED: Polyethylene Glycol 3350 Powder 17 GM Packet PO ONE (11:56)
--- NOTE | 2018-03-11 12:02 | EDM.PDOC ---
ED HPI GENERAL MEDICAL PROBLEM - General Chief Complaint: Gastrointestinal Problem Stated Complaint: BLOOD IN STOOL/NAUSEA Time Seen by Provider: 03/11/18 11:45 Source of Information: Reports: Patient, Old Records, RN History Limitations: Reports: No Limitations - History of Present Illness INITIAL COMMENTS - FREE TEXT/NARRATIVE: 57 yo male presents with hematochezia that began yesterday. Is getting worse. He has no pain with his BM's. Stools are hard from his pain meds that cause constipation. He has not been to the family doctor for this. Does have a pHx of hemorrhoids. Is a little dizzy with standing. Does not have rectal bleeding without the passage of stool. PHx is notable for lung CA and has mets to his L post ribs. Chemo is on hold hoping he can gain some weight before restarting. Is still smoking. Onset: Gradual Onset Date: 03/10/18 Duration: Day(s): (1.5), Getting Worse Location: Reports: Abdomen Quality: Reports: Other (mild abdominal cramps) Severity: Mild Improves with: Reports: None Worsens with: Reports: Other (uncertain) Context: Reports: Other (lung CA with mets) Associated Symptoms: Reports: No Other Symptoms. Denies: Fever/Chills, Nausea/ Vomiting, Shortness of Breath Treatments [employer]ER: Reports: Other (see below) (usual meds) - Related Data Allergies Allergy/AdvReac Type Severity Reaction Status Date / Time No Known Allergies Allergy Verified 03/11/18 11:49 Home Meds: Home Meds Lisdexamfetamine [Vyvanse] 60 mg PO DAILY 01/16/17 [History] Citalopram [Citalopram Hbr] 40 mg PO DAILY 06/13/17 [History] HYDROmorphone [Dilaudid] 2 mg PO Q4H 06/13/17 [History] Prochlorperazine [Compazine] 10 mg PO TID 06/13/17 [History] Past Medical History HEENT History: Reports: Allergic Rhinitis Respiratory History: Reports: Bronchitis, Recurrent, Other (See Below) Other Respiratory History: lung masses Gastrointestinal History: Reports: None Musculoskeletal History: Reports: Fracture Neurological History: Reports: Head Trauma, MS Other Neuro History: vega's palsy Psychiatric History: Reports: ADHD, Addiction, Anxiety, Bipolar, Depression, PTSD Immunologic History: Reports: Immunosuppression Oncologic (Cancer) History: Reports: Lung - Infectious Disease History Infectious Disease History: Reports: Chicken Pox - Past Surgical History HEENT Surgical History: Reports: None Respiratory Surgical History: Reports: None GI Surgical History: Reports: Appendectomy Neurological Surgical History: Reports: Other (See Below) Other Neurological Surgeries/Procedures: back surgery Musculoskeletal Surgical History: Reports: Other (See Below) Other Musculoskeletal Surgeries/Procedures:: various broken bones Social & Family History - Family History Family Medical History: Noncontributory - Tobacco Use Smoking Status *Q: Current Every Day Smoker Years of Tobacco use: 20 Packs/Tins Daily: 0.5 - Caffeine Use Caffeine Use: Reports: Coffee - Recreational Drug Use Recreational Drug Use: Yes Recreational Drug Type: Reports: Marijuana/Hashish Recreational Drug Use Frequency: Daily ED ROS GENERAL - Review of Systems Review Of Systems: See Below Constitutional: Reports: No Symptoms HEENT: Reports: No Symptoms Respiratory: Reports: No Symptoms Cardiovascular: Reports: Dyspnea on Exertion GI/Abdominal: Reports: Abdominal Pain, Bloody Stool, Constipation, Hematochezia. Denies: Black Stool, Diarrhea, Distension, Flatus, Hematemesis, Melena, Nausea, Vomiting : Reports: No Symptoms Musculoskeletal: Reports: Other (rib pain L flank) Skin: Reports: No Symptoms Neurological: Reports: Other (numbness over abdomen since radiation tx) Psychiatric: Reports: No Symptoms ED EXAM, GI/ABD - Physical Exam Exam: See Below Exam Limited By: No Limitations General Appearance: Alert, No Apparent Distress, Thin Eyes: Bilateral: Normal Appearance Ears: Normal External Exam, Normal Canal, Hearing Grossly Normal, Normal TMs Nose: Normal Inspection, Normal Mucosa, No Blood Throat/Mouth: Normal Inspection, Normal Lips, Normal Oropharynx, Normal Voice, No Airway Compromise Head: Atraumatic, Normocephalic Neck: Normal Inspection, Supple Respiratory/Chest: No Respiratory Distress, Lungs Clear, Normal Breath Sounds, No Accessory Muscle Use Cardiovascular: Regular Rate, Rhythm GI/Abdominal Exam: Normal Bowel Sounds, Soft, Non-Tender, No Distention Back Exam: Normal Inspection, CVA Tenderness (L) (rib mets in this area) Extremities: Normal Inspection Neurological: Alert, Oriented, CN II-XII Intact, Normal Cognition, No Motor/ Sensory Deficits Psychiatric: Normal Affect, Normal Mood Skin Exam: Warm, Dry, Intact, No Rash, Other (some skin hyperpigmentation L flank from his radiation treatments.) Course - Vital Signs Text/Narrative:: passed stool here that had no gross blood present. Last Recorded V/S: Last Vital Signs Temp 36.1 C 03/11/18 11:44 Pulse 71 03/11/18 11:44 Resp 16 03/11/18 11:44 BP 129/78 03/11/18 11:44 Pulse Ox 97 03/11/18 11:44 - Orders/Labs/Meds Orders: Active Orders 24 hr Category Date Time Status Orthostatic Vital Signs [RC] ASDIRECTED Care 03/11/18 11:56 Active Labs: Laboratory Tests 03/11/18 03/11/18 Range/Units 12:07 12:07 WBC 8.0 (4.5-11.0) K/uL RBC 3.89 L (4.30-5.90) M/uL Hgb 13.6 (12.0-15.0) g/dL Hct 40.8 (40.0-54.0) % MCV 105 H (80-98) fL MCH 35 H (27-31) pg MCHC 33 (32-36) % Plt Count 215 (150-400) K/uL Sodium 136 L (140-148) mmol/L Potassium 4.5 (3.6-5.2) mmol/L Chloride 100 (100-108) mmol/L Carbon Dioxide 26 (21-32) mmol/L Anion Gap 14.5 H (5.0-14.0) mmol/L BUN 13 (7-18) mg/dL Creatinine 0.8 (0.8-1.3) mg/dL Est Cr Clr Drug Dosing 87.02 mL/min Estimated GFR (MDRD) > 60 (>60) Glucose 105 (74-106) mg/dL Calcium 8.8 (8.5-10.1) mg/dL Meds: Medications Discontinued Medications Generic Name Dose Route Start Last Admin Trade Name Baldomeroq PRN Reason Stop Dose Admin Polyethylene Glycol 17 gm 03/11/18 11:56 03/11/18 12:12 Miralax PO 03/11/18 11:57 17 gm ONETIME ONE Administration Departure - Departure Time of Disposition: 12:32 Disposition: Home, Self-Care 01 Condition: Fair Clinical Impression: Hematochezia Constipation Qualifiers: Constipation type: drug induced constipation Qualified Code(s): K59.03 - Drug induced constipation - Discharge Information Referrals: Jessica Serra PA [Primary Care Provider] - Forms: ED Department Discharge - My Orders Last 24 Hours: My Active Orders 03/11/18 11:56 Orthostatic Vital Signs [RC] ASDIRECTED - Assessment/Plan Last 24 Hours: My Active Orders 03/11/18 11:56 Orthostatic Vital Signs [RC] ASDIRECTED
== END 2018-03-11 13:11 | disposition home or self-care (01) ==
LOC: JP.ED 10:48
DX: K59.03 Drug induced constipation (principal); K92.1 Melena; F17.210 Nicotine dependence, cigarettes, uncomplicated; Z79.899 Other long term (current) drug therapy
CPT/HCPCS: 36415; 80048; 85027; 99284; A9270